=== PATIENT | male | born 1945 ===

== ENCOUNTER → 2016-05-29 | Outpatient (REF) ==
[~2016-05-29] MED LIST: NORCO 325 MG-51 TAB PO; PRILOTC PO; VALIUM 10MG10 MG/TAB PO
== END ==
LOC: ZLAB.WCH 11:42
DX: Z01.89 Encounter for other specified special examinations (principal)

== ENCOUNTER → 2016-11-23 | Outpatient (REF) | LOC: ZLAB.WCH 10:23 | DX: Z01.89 Encounter for other specified special examinations (principal) ==

== ENCOUNTER 2017-07-28 18:56 | Inpatient (IN) | payer MEDICARE, OTHER ==
[~2017-07-28] VITALS: Ht 185.4 cm; Wt 67.0 kg
[2017-07-28] VITALS (10 sets, daily range): BP systolic 116; BP diastolic 74–79; PULSE 129–131; TEMP 97.4–98.1; O2SAT 100
[2017-07-28 19:57] LABS: ARTERIAL BLD GAS O2 SATURATION 97.9 % (92-100); ARTERIAL BLOOD GAS BASE EXCESS -4.6 (-2-2); ARTERIAL BLOOD GAS HCO3 18.2 meq/L (22-26)
[2017-07-28 19:58] LABS: ARTERIAL BLOOD GAS PCO2 23.7 mmHg (35-45); ARTERIAL BLOOD GAS PO2 140.8 mmHg (80-100)
[2017-07-28 20:07] LABS: BASO % 0.1 % (0.0-2.0); EOS % 0.3 % (0-4.0); GRAN # 6.9 (1.4-6.5); GRAN % 89.6 % (42.2-75.2); LYMPH # 0.2 (1.2-3.4); LYMPH % 2.5 % (20.0-51.0); MEAN CELL VOLUME 103 fl (80.0-100.0); MEAN CORPUSCULAR HGB CONC 34 g/dl (33.0-37.0); MEAN PLATELET VOLUME 9.8 fl (7.4-10.4); MONO # 0.5 (0.1-0.6); MONO % 6.8 % (1.7-9.3); PLATELET COUNT 65 K/mm3 (130-400); RED BLOOD COUNT 1.88 M/mm3 (4.20-5.60); REDCELL DISTRIBUTION WIDTH-CV 16.8 % (11.5-14.5)
[2017-07-28 20:10] LABS: HEMATOCRIT 19.3 % (42.0-52.0); MEAN CORPUSCULAR HEMOGLOBIN 35 pg (27.0-31.0)
[2017-07-28 20:13] LABS: HEMOGLOBIN 6.5 g/dl (13.5-18.0)
[2017-07-28 20:13] LABS: INR 1.6 (0.8-3.0); PROTHROMBIN TIME 19.2 SECONDS (9.7-12.8)
[2017-07-28 20:16] LABS: PARTIAL THROMBOPLASTIN TIME 28.4 SECONDS (26.0-37.0)
[2017-07-28 20:17] LABS: ALANINE AMINOTRANSFERASE 32 U/L (21-72); ALKALINE PHOSPHATASE 162 U/L (50-136); ANION GAP 21 mmol/L (7-16); AST,SGOT 90 U/L (15-37); BILIRUBIN,TOTAL 1.2 mg/dL (0.0-1.0); BLOOD UREA NITROGEN 8 mg/dL (9-20); CALCIUM 6.7 mg/dL (8.4-10.2); CARBON DIOXIDE 18 mmol/L (22-30); CREATININE, serum 0.72 mg/dL (0.66-1.25); GLUCOSE 55 mg/dL (74-106); POTASSIUM 3.5 mmol/L (3.4-5.0); SODIUM 125 mmol/L (137-145); TOTAL PROTEIN 4.2 gm/dL (6.4-8.2)
[2017-07-28 20:20] LABS: ALCOHOL(ethanol),MEDICAL < 10 mg/dL
[2017-07-28 20:22] LABS: CHLORIDE 87 mmol/L (98-107)
[2017-07-28 20:36] LABS: ACETONE,SERUM NEGATIVE; OSMOLALITY-SERUM 268 Osm/kg (275-300); TROPONIN-I < 0.012 ng/mL (0.000-0.034)
[2017-07-29] VITALS (970 sets, daily range): BP systolic 88–153; BP diastolic 66–99; PULSE 104–136; TEMP 87.4–99.8; O2SAT 62–100
[2017-07-29 00:38] LABS: CALCIUM 6.1 mg/dL (8.4-10.2); CREATININE, serum 0.64 mg/dL (0.66-1.25)
[2017-07-29] MEDS ORDERED: PROTONIX 40MG T40 MG PO (07:48)
[2017-07-29 07:56] LABS: GRAN # 4.2 (1.4-6.5); GRAN % 88.2 % (42.2-75.2); LYMPH # 0.2 (1.2-3.4); LYMPH % 3.3 % (20.0-51.0); MEAN CORPUSCULAR HGB CONC 35 g/dl (33.0-37.0); MONO # 0.4 (0.1-0.6); MONO % 8.1 % (1.7-9.3); PLATELET COUNT 102 K/mm3 (130-400); RED BLOOD COUNT 1.91 M/mm3 (4.20-5.60); REDCELL DISTRIBUTION WIDTH-CV 15.9 % (11.5-14.5)
[2017-07-29 07:57] LABS: INR 1.4 (0.8-3.0); PROTHROMBIN TIME 16.2 SECONDS (9.7-12.8)
[2017-07-29 08:03] LABS: CREATININE, serum 0.57 mg/dL (0.66-1.25); MAGNESIUM 2.2 mg/dL (1.6-2.3)
[2017-07-29 08:16] LABS: HEMATOCRIT 18.5 % (42.0-52.0); HEMOGLOBIN 6.4 g/dl (13.5-18.0); MEAN CELL VOLUME 97 fl (80.0-100.0); MEAN CORPUSCULAR HEMOGLOBIN 34 pg (27.0-31.0)
[2017-07-29 08:18] LABS: CALCIUM 5.7 mg/dL (8.4-10.2); POTASSIUM 2.8 mmol/L (3.4-5.0)
[2017-07-29 09:41] LABS: MUCOUS Present /lpf; PH 7 (5-8); SQUAMOUS EPITHELIAL None Seen /hpf; URINE APPEARANCE Clear; URINE BACTERIA None Seen /hpf; URINE BILIRUBIN Negative (NEGATIVE); URINE BLOOD 2+ (NEGATIVE); URINE COLOR Straw; URINE GLUCOSE Negative (NEGATIVE); URINE KETONE Trace (NEGATIVE); URINE LEUKOCYTE ESTERASE Trace (NEGATIVE); URINE NITRATE Negative (NEGATIVE); URINE PROTEIN(semi-quant) Negative (NEGATIVE); URINE UROBILINOGEN Negative (NEGATIVE)
[2017-07-29 09:48] LABS: TRICYCLIC ANTIDEPRESS URINE NEGATIVE
[2017-07-29 09:49] LABS: COLLECTION METHOD CATHETER
[2017-07-29 11:41] LABS: HEMATOCRIT 25.2 % (42.0-52.0); HEMOGLOBIN 8.8 g/dl (13.5-18.0)
[2017-07-29 11:47] LABS: CALCIUM 6.8 mg/dL (8.4-10.2); CREATININE, serum 0.59 mg/dL (0.66-1.25); POTASSIUM 3.6 mmol/L (3.4-5.0)
[2017-07-29 16:37] LABS: CALCIUM 6.6 mg/dL (8.4-10.2); CREATININE, serum 0.56 mg/dL (0.66-1.25); POTASSIUM 3.8 mmol/L (3.4-5.0)
[2017-07-29 20:10] LABS: CALCIUM 6.4 mg/dL (8.4-10.2); CREATININE, serum 0.53 mg/dL (0.66-1.25); POTASSIUM 4.7 mmol/L (3.4-5.0)
[2017-07-29 20:14] LABS: HEMATOCRIT 24.1 % (42.0-52.0); HEMOGLOBIN 8.4 g/dl (13.5-18.0)
[2017-07-30] VITALS (780 sets, daily range): BP systolic 87–119; BP diastolic 58–84; PULSE 41–139; TEMP 97.6–98.9; O2SAT 69–100
[2017-07-30 05:31] LABS: HEMOGLOBIN 8.2 g/dl (13.5-18.0)
[2017-07-30 05:41] LABS: ALBUMIN 2.1 gm/dL (3.5-5.0); BILIRUBIN,TOTAL 0.5 mg/dL (0.0-1.0); CALCIUM 6.5 mg/dL (8.4-10.2); CREATININE, serum 0.52 mg/dL (0.66-1.25); POTASSIUM 3.4 mmol/L (3.4-5.0); TOTAL PROTEIN 4.3 gm/dL (6.4-8.2)
[2017-07-31] VITALS (7 sets, daily range): BP systolic 91–140; BP diastolic 57–94; PULSE 70–120; TEMP 97.5–98.8
[2017-07-31 06:34] LABS: MEAN CELL VOLUME 97 fl (80.0-100.0); MEAN CORPUSCULAR HGB CONC 34 g/dl (33.0-37.0); MEAN PLATELET VOLUME 9.6 fl (7.4-10.4); PLATELET COUNT 106 K/mm3 (130-400); REDCELL DISTRIBUTION WIDTH-CV 17.3 % (11.5-14.5)
[2017-07-31 06:40] LABS: BILIRUBIN,TOTAL 0.6 mg/dL (0.0-1.0); CALCIUM 6.4 mg/dL (8.4-10.2); CREATININE, serum 0.49 mg/dL (0.66-1.25); TOTAL PROTEIN 4.1 gm/dL (6.4-8.2)
[2017-07-31 06:41] LABS: HEMATOCRIT 23.3 % (42.0-52.0); HEMOGLOBIN 7.8 g/dl (13.5-18.0); MEAN CORPUSCULAR HEMOGLOBIN 33 pg (27.0-31.0)
[2017-07-31 06:46] LABS: INR 1.1 (0.8-3.0); PROTHROMBIN TIME 13.1 SECONDS (9.7-12.8)
[2017-07-31 06:55] LABS: POTASSIUM 2.7 mmol/L (3.4-5.0)
[2017-07-31 07:24] LABS: BAND 16 % (0-10); EOSINOPHIL 3 % (0-4); HYPOCHROMIA 2+; LYMPHOCYTE 7 % (20.0-51.0); METAMYELOCYTE 2 % (0-0); NEUTROPHILS 72 % (42.0-75.2); PLATELET ESTIMATE DECREASED (NORMAL)
[2017-08-01] VITALS (7 sets, daily range): BP systolic 82–133; BP diastolic 49–97; PULSE 52–110; TEMP 97.6–98.7
[2017-08-01 07:23] LABS: BASO % 0.3 % (0.0-2.0); EOS # 0.1 (0.0-0.7); EOS % 3.7 % (0-4.0); GRAN # 2.3 (1.4-6.5); GRAN % 69.2 % (42.2-75.2); LYMPH # 0.4 (1.2-3.4); LYMPH % 10.7 % (20.0-51.0); MEAN CELL VOLUME 99 fl (80.0-100.0); MEAN CORPUSCULAR HGB CONC 33 g/dl (33.0-37.0); MEAN PLATELET VOLUME 9.6 fl (7.4-10.4); MONO # 0.5 (0.1-0.6); MONO % 15.5 % (1.7-9.3); PLATELET COUNT 98 K/mm3 (130-400); RED BLOOD COUNT 2.35 M/mm3 (4.20-5.60)
[2017-08-01 07:31] LABS: HEMATOCRIT 23.3 % (42.0-52.0); HEMOGLOBIN 7.6 g/dl (13.5-18.0); MEAN CORPUSCULAR HEMOGLOBIN 32 pg (27.0-31.0)
[2017-08-01 07:38] LABS: ALBUMIN 1.9 gm/dL (3.5-5.0); BILIRUBIN,TOTAL 0.3 mg/dL (0.0-1.0); CALCIUM 7.1 mg/dL (8.4-10.2); CREATININE, serum 0.46 mg/dL (0.66-1.25); MAGNESIUM 1.7 mg/dL (1.6-2.3); POTASSIUM 3.8 mmol/L (3.4-5.0)
[2017-08-02 04:27] VITALS: BP 103/59; PULSE 108; TEMP 98
[2017-08-02 07:18] LABS: MEAN CELL VOLUME 100 fl (80.0-100.0); MEAN CORPUSCULAR HGB CONC 33 g/dl (33.0-37.0); MEAN PLATELET VOLUME 9.7 fl (7.4-10.4); PLATELET COUNT 109 K/mm3 (130-400); RED BLOOD COUNT 2.38 M/mm3 (4.20-5.60); REDCELL DISTRIBUTION WIDTH-CV 17.5 % (11.5-14.5)
[2017-08-02 07:27] LABS: HEMATOCRIT 23.8 % (42.0-52.0); HEMOGLOBIN 7.8 g/dl (13.5-18.0); MEAN CORPUSCULAR HEMOGLOBIN 33 pg (27.0-31.0)
[2017-08-02 07:38] LABS: ALBUMIN 1.8 gm/dL (3.5-5.0); BILIRUBIN,TOTAL 0.4 mg/dL (0.0-1.0); CALCIUM 7.5 mg/dL (8.4-10.2); CREATININE, serum 0.51 mg/dL (0.66-1.25); POTASSIUM 3.8 mmol/L (3.4-5.0); TOTAL PROTEIN 3.9 gm/dL (6.4-8.2)
[2017-08-02 08:06] VITALS: BP 91/63; PULSE 109; TEMP 97.9
[2017-08-02 09:06] LABS: BAND 2 % (0-10); LYMPHOCYTE 13 % (20.0-51.0); METAMYELOCYTE 1 % (0-0); NEUTROPHILS 73 % (42.0-75.2)
[2017-08-02 09:07] LABS: HYPOCHROMIA 2+; PLATELET ESTIMATE DECREASED (NORMAL)
[2017-08-02 09:08] LABS: ANISOCYTOSIS 1+
[2017-08-02 12:00] VITALS: BP 97/55; PULSE 16; TEMP 98
[2017-08-02 17:18] VITALS: BP 88/56; PULSE 76; TEMP 97.8
[2017-08-02 19:47] VITALS: BP 91/69; PULSE 108; TEMP 99.5
[2017-08-02 23:14] VITALS: BP 98/52; PULSE 123; TEMP 98.3
[2017-08-03] VITALS (688 sets, daily range): BP systolic 67–120; BP diastolic 36–94; PULSE 87–108; TEMP 97–98.9; O2SAT 34–100
[2017-08-03 02:48] LABS: ARTERIAL BLD GAS O2 SATURATION 95.7 % (92-100); ARTERIAL BLD GAS TCO2 CT 31.1; ARTERIAL BLOOD GAS BASE EXCESS 6.6 (-2-2); ARTERIAL BLOOD GAS HCO3 29.9 meq/L (22-26); ARTERIAL BLOOD GAS PCO2 37.6 mmHg (35-45); ARTERIAL BLOOD GAS PO2 82.6 mmHg (80-100); ARTERIAL BLOOD GAS pH 7.52 (7.35-7.45)
[2017-08-03 02:49] LABS: MEAN CELL VOLUME 98 fl (80.0-100.0); MEAN CORPUSCULAR HGB CONC 34 g/dl (33.0-37.0); MEAN PLATELET VOLUME 9.2 fl (7.4-10.4); PLATELET COUNT 86 K/mm3 (130-400); RED BLOOD COUNT 1.79 M/mm3 (4.20-5.60); REDCELL DISTRIBUTION WIDTH-CV 17.4 % (11.5-14.5)
[2017-08-03 02:53] LABS: MEAN CORPUSCULAR HEMOGLOBIN 33 pg (27.0-31.0)
[2017-08-03 02:54] LABS: HEMATOCRIT 17.5 % (42.0-52.0)
[2017-08-03 02:55] LABS: HEMOGLOBIN 5.9 g/dl (13.5-18.0)
[2017-08-03 02:59] LABS: ALBUMIN 1.3 gm/dL (3.5-5.0); BILIRUBIN,TOTAL 0.4 mg/dL (0.0-1.0); CREATININE, serum 0.43 mg/dL (0.66-1.25); TOTAL PROTEIN 2.9 gm/dL (6.4-8.2)
[2017-08-03 03:00] LABS: CALCIUM 5.9 mg/dL (8.4-10.2)
[2017-08-03 03:10] LABS: TROPONIN-I 0.032 ng/mL (0.000-0.034)
[2017-08-03 03:25] LABS: INR 1.5 (0.8-3.0); PROTHROMBIN TIME 17.4 SECONDS (9.7-12.8)
[2017-08-03 03:29] LABS: BAND 18 % (0-10); EOSINOPHIL 2 % (0-4); LYMPHOCYTE 6 % (20.0-51.0); NEUTROPHILS 61 % (42.0-75.2); PLATELET ESTIMATE NORMAL (NORMAL)
[2017-08-03 03:30] LABS: ANISOCYTOSIS 2+
[2017-08-03 13:46] LABS: HEMATOCRIT 35.2 % (42.0-52.0)
[2017-08-03 13:51] LABS: HEMOGLOBIN 11.9 g/dl (13.5-18.0)
[2017-08-03 15:18] LABS: ACETONE XXX
[2017-08-03] MEDS ORDERED: ASPIRIN E.C. 8181 MG PO (15:19)
[2017-08-03] MEDS ORDERED: BENGAY ULTRA ST TP (15:20)
[2017-08-03] MEDS ORDERED: DULCOLAX S10 MG/SUPP RC (15:20)
[2017-08-03] MEDS ORDERED: PLAVIX 75MG TAB75 MG PO (15:21)
[2017-08-03] MEDS ORDERED: LANOXIN 0.25M0.25 MG PO (15:23)
[2017-08-03] MEDS ORDERED: NEURONTIN100 MG/CAP PO (15:28)
[2017-08-03] MEDS ORDERED: GENTAMICIN TOPI15 GM TP (15:29)
[2017-08-03] MEDS ORDERED: GOOD NEIGH1200 MG/15 PO (15:31)
[2017-08-03] MEDS ORDERED: ICY HOT 7.6%-291 STI TP (15:32)
[2017-08-03] MEDS ORDERED: MULTI VITAMINS1 TAB PO (15:34)
[2017-08-03] MEDS ORDERED: PRIL40 PO (15:35)
[2017-08-03] MEDS ORDERED: ALEVE PM PO (15:35)
[2017-08-03] MEDS ORDERED: MICRO-K 10 EXT10 MEQ PO (15:37)
[2017-08-03] MEDS ORDERED: PROAIR HFA0.09 MG/AC IH (15:38)
[2017-08-03] MEDS ORDERED: THIAMINE 1100 MG/TAB PO (15:39)
[2017-08-03] MEDS ORDERED: ZOLOFT 50MG50 MG PO (15:39)
[2017-08-03 19:49] LABS: HEMOGLOBIN 11.7 g/dl (13.5-18.0)
[2017-08-04] VITALS (8 sets, daily range): BP systolic 98–114; BP diastolic 64–77; PULSE 67–132; TEMP 97.8–99
[2017-08-04 03:16] LABS: MUCOUS Present /lpf; PH 9 (5-8); SQUAMOUS EPITHELIAL None Seen /hpf; URINE APPEARANCE Clear; URINE BACTERIA Rare /hpf; URINE BILIRUBIN Negative (NEGATIVE); URINE BLOOD 1+ (NEGATIVE); URINE COLOR Yellow; URINE GLUCOSE Negative (NEGATIVE); URINE KETONE Trace (NEGATIVE); URINE LEUKOCYTE ESTERASE Negative (NEGATIVE); URINE NITRATE Negative (NEGATIVE); URINE PROTEIN(semi-quant) 1+ (NEGATIVE); URINE RBC 20-50 /hpf; URINE UROBILINOGEN Negative (NEGATIVE)
[2017-08-04 03:23] LABS: COLLECTION METHOD CATHETER
[2017-08-04 09:29] LABS: BASO % 0.6 % (0.0-2.0); EOS # 0.2 (0.0-0.7); EOS % 4.5 % (0-4.0); GRAN # 2.4 (1.4-6.5); GRAN % 66.4 % (42.2-75.2); LYMPH # 0.3 (1.2-3.4); MEAN CORPUSCULAR HGB CONC 34 g/dl (33.0-37.0); MEAN PLATELET VOLUME 9.4 fl (7.4-10.4); MONO # 0.7 (0.1-0.6); MONO % 18.9 % (1.7-9.3); PLATELET COUNT 154 K/mm3 (130-400); RED BLOOD COUNT 3.58 M/mm3 (4.20-5.60); REDCELL DISTRIBUTION WIDTH-CV 18.2 % (11.5-14.5)
[2017-08-04 09:33] LABS: HEMATOCRIT 33.4 % (42.0-52.0); HEMOGLOBIN 11.4 g/dl (13.5-18.0); MEAN CELL VOLUME 93 fl (80.0-100.0); MEAN CORPUSCULAR HEMOGLOBIN 32 pg (27.0-31.0)
[2017-08-05] VITALS (10 sets, daily range): BP systolic 78–125; BP diastolic 51–77; PULSE 96–141; TEMP 97.4–98.8
[2017-08-05 08:16] LABS: MEAN CELL VOLUME 94 fl (80.0-100.0); MEAN CORPUSCULAR HEMOGLOBIN 31 pg (27.0-31.0); MEAN CORPUSCULAR HGB CONC 34 g/dl (33.0-37.0); MEAN PLATELET VOLUME 9.2 fl (7.4-10.4); PLATELET COUNT 176 K/mm3 (130-400); REDCELL DISTRIBUTION WIDTH-CV 17.6 % (11.5-14.5)
[2017-08-05 08:17] LABS: HEMATOCRIT 32.8 % (42.0-52.0)
[2017-08-05 08:25] LABS: CALCIUM 7.7 mg/dL (8.4-10.2); CREATININE, serum 0.52 mg/dL (0.66-1.25); POTASSIUM 3.5 mmol/L (3.4-5.0)
[2017-08-05 08:33] LABS: BAND 5 % (0-10); EOSINOPHIL 4 % (0-4); LYMPHOCYTE 8 % (20.0-51.0); NEUTROPHILS 72 % (42.0-75.2)
[2017-08-05 08:34] LABS: ANISOCYTOSIS 1+; PLATELET ESTIMATE NORMAL (NORMAL)
[2017-08-05 10:04] LABS: INR 1.2 (0.8-3.0); PROTHROMBIN TIME 13.5 SECONDS (9.7-12.8)
[2017-08-06 06:19] VITALS: BP 111/65; PULSE 97
[2017-08-06 06:45] LABS: MEAN CELL VOLUME 94 fl (80.0-100.0); MEAN CORPUSCULAR HGB CONC 34 g/dl (33.0-37.0); MEAN PLATELET VOLUME 9.7 fl (7.4-10.4); PLATELET COUNT 189 K/mm3 (130-400); RED BLOOD COUNT 3.04 M/mm3 (4.20-5.60); REDCELL DISTRIBUTION WIDTH-CV 17.6 % (11.5-14.5)
[2017-08-06 06:55] LABS: HEMATOCRIT 28.6 % (42.0-52.0); HEMOGLOBIN 9.7 g/dl (13.5-18.0); MEAN CORPUSCULAR HEMOGLOBIN 32 pg (27.0-31.0)
[2017-08-06 07:04] LABS: CALCIUM 7.8 mg/dL (8.4-10.2); CREATININE, serum 0.52 mg/dL (0.66-1.25); MAGNESIUM 1.6 mg/dL (1.6-2.3); POTASSIUM 3.7 mmol/L (3.4-5.0)
[2017-08-06 07:28] VITALS: BP 128/72; PULSE 89; TEMP 97.9
[2017-08-06 08:48] LABS: BAND 12 % (0-10); EOSINOPHIL 5 % (0-4); LYMPHOCYTE 10 % (20.0-51.0); NEUTROPHILS 69 % (42.0-75.2); PLATELET ESTIMATE NORMAL (NORMAL)
[2017-08-06 08:49] LABS: ANISOCYTOSIS 1+
[2017-08-06 08:50] LABS: HYPOCHROMIA 1+
[2017-08-06 11:12] VITALS: BP 117/63; PULSE 103; TEMP 98
[2017-08-06 15:41] VITALS: BP 115/67; PULSE 94; TEMP 98.8
[2017-08-06 20:00] VITALS: BP 119/74; PULSE 89; TEMP 96.3
[2017-08-07] VITALS: BP 117/73; PULSE 87; TEMP 97.4
[2017-08-07 04:00] VITALS: BP 113/68; PULSE 89; TEMP 98.2
[2017-08-07 06:14] LABS: BASO % 0.4 % (0.0-2.0); EOS # 0.2 (0.0-0.7); GRAN # 3.8 (1.4-6.5); GRAN % 76.3 % (42.2-75.2); HEMOGLOBIN 11.2 g/dl (13.5-18.0); LYMPH # 0.5 (1.2-3.4); LYMPH % 9.1 % (20.0-51.0); MEAN CELL VOLUME 97 fl (80.0-100.0); MEAN CORPUSCULAR HEMOGLOBIN 32 pg (27.0-31.0); MEAN CORPUSCULAR HGB CONC 33 g/dl (33.0-37.0); MEAN PLATELET VOLUME 9.7 fl (7.4-10.4); MONO # 0.5 (0.1-0.6); MONO % 10.8 % (1.7-9.3); PLATELET COUNT 234 K/mm3 (130-400); RED BLOOD COUNT 3.48 M/mm3 (4.20-5.60); REDCELL DISTRIBUTION WIDTH-CV 17.5 % (11.5-14.5)
[2017-08-07 06:15] LABS: HEMATOCRIT 33.6 % (42.0-52.0)
[2017-08-07 06:35] LABS: ALBUMIN 2.5 gm/dL (3.5-5.0); BILIRUBIN,TOTAL 0.6 mg/dL (0.0-1.0); CALCIUM 8.3 mg/dL (8.4-10.2); CREATININE, serum 0.55 mg/dL (0.66-1.25); TOTAL PROTEIN 4.9 gm/dL (6.4-8.2)
[2017-08-07 07:50] VITALS: BP 106/69; PULSE 97; TEMP 97.6
[2017-08-07] MEDS ORDERED: IPRATROPIUM BROM3 M1 IH (11:20)
[2017-08-07] MEDS ORDERED: FERROUS SU325 MG/TAB PO (11:21)
[2017-08-07] MEDS ORDERED: NICODERM C14 MG/PATC TD (11:21)
[2017-08-07] MEDS ORDERED: CARAFATE S1 GM/10 ML PO (11:23)
[2017-08-07 12:13] VITALS: BP 106/70; PULSE 78; TEMP 97.6
== END 2017-08-07 20:14 | DRG 377 ==
LOC: ICU 18:56 → MEDICAL 19:03 → ICU 19:03 → MEDICAL 07-30 14:13 → ICU 08-03 03:25 → MEDICAL 08-03 17:46
PROVIDERS: Internal Medicine; Internal Medicine Gastroenterology; Internal Medicine Pulmonary Disease; Nurse Practitioner; Nurse Practitioner Family; Physician Assistant
PROC: 02HV33Z Insertion of Infusion Device into Superior Vena Cava, Percutaneous Approach (ICD-10-PCS; 2017-07-28)
PROC: 0DB68ZX Excision of Stomach, Via Natural or Artificial Opening Endoscopic, Diagnostic (ICD-10-PCS; principal; 2017-07-29 07:25)
PROC: 0DJ08ZZ Inspection of Upper Intestinal Tract, Via Natural or Artificial Opening Endoscopic (ICD-10-PCS; 2017-08-03)
DX: K26.0 Acute duodenal ulcer with hemorrhage (principal); E43 Unspecified severe protein-calorie malnutrition; D62 Acute posthemorrhagic anemia; E87.1 Hypo-osmolality and hyponatremia; J90 Pleural effusion, not elsewhere classified; Z68.1 Body mass index [BMI] 19.9 or less, adult; N39.0 Urinary tract infection, site not specified; E87.2 Acidosis; K22.10 Ulcer of esophagus without bleeding; I73.9 Peripheral vascular disease, unspecified; Z95.820 Peripheral vascular angioplasty status with implants and grafts; J44.9 Chronic obstructive pulmonary disease, unspecified; Z85.01 Personal history of malignant neoplasm of esophagus; Z79.01 Long term (current) use of anticoagulants; I48.91 Unspecified atrial fibrillation; E83.42 Hypomagnesemia; Z85.810 Personal history of malignant neoplasm of tongue; F17.210 Nicotine dependence, cigarettes, uncomplicated; E87.6 Hypokalemia; F10.10 Alcohol abuse, uncomplicated; Y90.0 Blood alcohol level of less than 20 mg/100 ml
CPT/HCPCS: 99222; 99223-AI; 99231-AI; 99232-AI; 99233-AI; 99239; C1751; C1894; C9113; J0610; J0696; J1940; J2060; J2270; J2354; J2704; J3010; J3430; J3475; J3480; J7030; J7040; J7060; P9012; P9016; P9047; Q9967

== ENCOUNTER → 2017-07-29 | Outpatient (REF) ==
[~2017-07-29] MED LIST changes: +PROTONIX 40MG T40 MG PO
== END ==
LOC: ZLAB.WCH 08:41
DX: Z01.89 Encounter for other specified special examinations (principal)

== ENCOUNTER → 2018-03-06 | Outpatient (REF) ==
[~2018-03-06] MED LIST changes: +ALEVE PM PO; +ASPIRIN E.C. 8181 MG PO; +BENGAY ULTRA ST TP; +CARAFATE S1 GM/10 ML PO; +DULCOLAX S10 MG/SUPP RC; +FERROUS SU325 MG/TAB PO; +GENTAMICIN TOPI15 GM TP; +GOOD NEIGH1200 MG/15 PO; +ICY HOT 7.6%-291 STI TP; +IPRATROPIUM BROM3 M1 IH; +LANOXIN 0.25M0.25 MG PO; +MICRO-K 10 EXT10 MEQ PO; +MULTI VITAMINS1 TAB PO; +NEURONTIN100 MG/CAP PO; +NICODERM C14 MG/PATC TD; +PLAVIX 75MG TAB75 MG PO; +PRIL40 PO; +PROAIR HFA0.09 MG/AC IH; +THIAMINE 1100 MG/TAB PO; +ZOLOFT 50MG50 MG PO
== END ==
LOC: ZLAB.WCH 10:40
DX: Z01.89 Encounter for other specified special examinations (principal)

== ENCOUNTER 2018-03-09 16:10 | Outpatient (CLI) | payer MEDICARE, OTHER ==
[~2018-03-09] VITALS: Ht 185.4 cm; Wt 60.0 kg
[2018-03-09 16:16] VITALS: BP 112/82; PULSE 101; TEMP 97.4
== END 2018-03-09 17:39 | disposition home or self-care (01) ==
LOC: EUO 16:10
DX: E46 Unspecified protein-calorie malnutrition (principal); Z95.828 Presence of other vascular implants and grafts
CPT/HCPCS: C1751; C1894

== ENCOUNTER → 2018-03-09 | Outpatient (REF) | LOC: ZLAB.WCH 16:03 | DX: Z01.89 Encounter for other specified special examinations (principal) ==

== ENCOUNTER → 2018-03-13 | Outpatient (REF) ==
[2018-03-13 16:46] LABS: ALBUMIN 2.2 gm/dL (3.5-5.0); BILIRUBIN,TOTAL 0.3 mg/dL (0.0-1.0); CALCIUM 8.6 mg/dL (8.4-10.2); CREATININE, serum 0.45 mg/dL (0.66-1.25); MAGNESIUM 1.8 mg/dL (1.6-2.3); POTASSIUM 3.7 mmol/L (3.4-5.0)
== END ==
LOC: ZLAB.WCH 16:37
PROVIDERS: Internal Medicine
DX: Z01.89 Encounter for other specified special examinations (principal)

== ENCOUNTER → 2018-03-17 | Outpatient (REF) | LOC: ZLAB.WCH 08:33 | DX: Z01.89 Encounter for other specified special examinations (principal) ==